=== PATIENT | female | born 1945 | race Hispanic/Latino ===

== ENCOUNTER 2021-12-04 15:44 | Outpatient (RCR) | payer MEDICARE ==
[~2021-12-04 15:44] MED LIST: FOSAMAX PLUS D1 EACH PO; ISOSORBIDE MONO20 MG PO; LEVOTHYROXINE50 MCG PO; LEVOXYL75 MCG PO; LOPRESSOR25 MG PO; LYRICA75 MG; MEDROL4 MG/DOSE-; MOBIC15 MG; MUCINEX DM ER1 EACH PO; NEXIUM40 MG; PRAVASTATIN SOD40 MG PO; RANEXA500 MG PO; TESSALON PERLE100 MG PO; ULTRAM 50MG50 MG PO
== END 2021-12-05 ==
LOC: PT 15:44
PROVIDERS: ATTEND Internal Medicine
DX: R06.02 Shortness of breath (principal); J44.9 Chronic obstructive pulmonary disease, unspecified; I50.30 Unspecified diastolic (congestive) heart failure

== ENCOUNTER 2021-12-19 14:51 | Outpatient (RCR) | payer MEDICARE | END 2022-01-04 | LOC: PT 14:51 | PROVIDERS: ATTEND Internal Medicine | DX: R06.02 Shortness of breath (principal); J44.9 Chronic obstructive pulmonary disease, unspecified; I50.30 Unspecified diastolic (congestive) heart failure ==